=== PATIENT | female | born 1970 | race Caucasian/White ===

== ENCOUNTER → 2018-09-24 | Outpatient (CLI) | payer OTHER ==
--- NOTE | 2018-09-26 13:37 | RADIOLOGY IMAGING REPORT ---
[place] [facility] [place] NAME: HECTOR MATHEWS : [id number] MR: [id number] V: [id number] EXAM DATE: ORDERING PHYSICIAN: DOROTHEA RODRÍGUEZ TECHNOLOGIST: Tricia Weaver PROCEDURE:BILATERAL DIGITAL SCREENING MAMMOGRAM WITH CAD ASSISTED INTERPRETATION & 3D TOMOSYNTHESIS COMPARISON:Prior mammograms 01/05/17, 01/06/15, 12/13/13, 10/22/12. INDICATIONS:screening FINDINGS: The breasts are heterogeneously dense which can obscure small masses. The parenchymal pattern has remained stable allowing for difference in mammographic technique & patient positioning. DIAGNOSTIC CATEGORY 1--NEGATIVE. RECOMMENDATIONS: ROUTINE MAMMOGRAM AND CLINICAL EVALUATION. IMPRESSION: BIRADS 1: Negative. No significant abnormality is seen. Dictated by: Yanna Dang M.D. on 09/24/2018 at 17:23 Transcribed by: MICHAEL on 09/25/2018 at 8:52 Approved by: Yanna Dang M.D. on 09/26/2018 at 13:36 [facility]
== END ==
LOC: MAMO 08-21 00:16
PROVIDERS: ATTEND Physician Assistant
DX: Z12.31 Encounter for screening mammogram for malignant neoplasm of breast (principal)
CPT/HCPCS: 77063; 77067